=== PATIENT | female | born 1985 | race Caucasian/White ===

== ENCOUNTER 2016-12-12 15:44 | Emergency (ER) | payer OTHER ==
[~2016-12-12] VITALS: Wt 60.7 kg
--- NOTE | 2016-12-12 15:57 | ERD ---
ER Documentation Chief Complaint Date/Time DATE: 12/12/16 TIME: 15:55 Chief Complaint LEFT EAR PAIN, COUGH, THROAT PAIN, FEVER AT HOME HPI 31 y/o female presents to ED for left ear pain. Stated that her temp last night was about 99.4 degrees Fahrenheit and took Tylenol prior to sleeping. Left ear pain was described as achy nonradiating with pain rate of 7/10 last night but 2/ 10 at this time. She also reports nasal congestion with facial pain. She is 5 weeks . Visited her OB last . Denies headache, loss of consciousness, dizziness, blurry vision, changes in vision, photophobia, facial pain, throat pain, difficulty swallowing, neck pain , shoulder pain, chest pain, cough, hemoptysis, abdominal pain, pelvic pain/ cramping back pain/cramping, loss of appetite, nausea, vomiting, hematochezia, diarrhea, constipation, urinary symptoms, vaginal discharge, vaginal bleeding, bladder and bowel incontinences, extremity weakness, extremity tenderness, numbness or tingling sensation, difficulty walking, recent travel, recent exposure to illness, recent antibiotic use in the last 3 months, fever, chills. Allergy: NKA PMH: Denies. Family medical history: Denies. A1 LMP: 10/08/2017 Medications: vitamins. Surgery: Denies. 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 Denies smoking, use of alcohol, use of illegal drugs. ROS All systems reviewed and are negative except as per history of present illness. Medications Home Meds Active Scripts Amoxicillin/Potassium Clav (Amox-Clav 875-125 mg Tablet) 875-125 mg Tab, 1 TAB PO BID for 7 Days, #14 TAB Prov:RICHANAND WADSWORTH F 12/12/16 Acetaminophen* (Tylophen*) 500 Mg Capsule, 1 CAP PO Q6H Y for PAIN AND OR ELEVATED TEMP, #20 CAP Prov:RICHERMELINDAANAND F 12/12/16 Physical Exam Vitals Vital Signs Date Time Temp Pulse Resp B/P Pulse Ox O2 Delivery O2 Flow Rate FiO2 12/12/16 15:47 97.9 77 18 114/62 98 Physical Exam CONSTITUTIONAL: Well-appearing; well-nourished; in no apparent distress.~ HEAD: Normocephalic; atraumatic.~ No visible or palpable masses. EYES: Conjunctiva clear, sclera non-icteric, EOM intact. PERRL Ears: Right ear: Hearing intact. EACs clear, TMs non-bulging, non-inflamed, translucent & mobile, ossicles normal appearance, No obstructions, no erythema, no discharges Left ear: Hearing intact. EACs clear, TMs bulging, inflamed, translucent & mobile. No signs of effusion. No obstructions, no erythema, no discharges Nose: No obstructions. No polyps. No external lesions. Mucosa inflamed. No external lesions, septum and turbinates normal. No rhinorrhea. No discharges. Frontal sinus is tender to palpation. Maxillary sinus is tenderness to palpation. MOUTH: Moist mucous membranes, no lesion, no obstructions, no vesicles, no thrush TEETH: No obvious carries or periodontal diseases. No gingival inflammation, lesions, bleeding, discharge. Throat: Uvula in midline. Right tonsil is +2 with no erythema, no exudate. Left tonsil is +2 with no erythema, no exudate. Tolerating secretions well. Good gag reflex. Neck: Supple, without lesions, bruits, or adenopathy. No mass. Thyroid non- enlarged and non-tender to palpation. CHEST: Symmetrical chest. Respirations even and not labored. No retractions noted. CARDIOVASCULAR: Normal S1, S2. RRR. No murmurs, gallops. RESPIRATORY: Normal chest excursion with respiration; breath sounds clear and equal bilaterally; no wheezes, rhonchi, or rales. Breathing even and unlabored. Speaking in clear, full, and complete sentences w/ ease. ABDOMEN: Normal bowel sounds normal. Soft, round, non-distended, non-guarding, no tenderness, no rebound, no organomegaly, no masses, no pulsating abdominal mass. No hernia. No peritoneal signs. : NO CVA Tenderness. BACK: Symmetrical shoulder. Spine is midline without deformity, tenderness. No evidence of trauma or deformity. PELVIS: Stable pelvis. No evidence of trauma or deformity.~ MUSCULOSKELETAL: Normal gait and station. No misalignment, asymmetry, crepitation, defects, tenderness, masses, effusions, decreased range of motion, instability, atrophy or abnormal strength or tone in the head, neck, spine, ribs , pelvis or extremities. No calf tenderness. NEUROVASCULAR: Distal pulses are present. Pedal pulse are present, equal, and normal. Cap refills are < 2 seconds. NEUROLOGIC: Alert and oriented x4. Speaks full and clear sentences. Cranial Nerves II-XII normal. Sensation to pain, touch, and proprioception normal. Grossly unremarkable. No neurologic deficits. Romberg test is negative. PSYCHOLOGICAL: The patients mood and manner are appropriate. No hallucinations , delusions. Not SI. Not HI. Has the capacity to decide for himself/herself. SKIN: Normal for age and ethnicity; warm; dry; good turgor; no apparent lesions or exudates. No rashes, hives, discoloration. Intact. Procedures/MDM Examination. Disease process, medical treatment was explained to the patient and family member. They verbalized understanding and agreed with the diagnostic tests, medical treatment, and follow-up care. Consultation: None. Differential diagnosis: Otitis media versus otitis externa versus upper respiratory infection versus sinusitis. Medical decision makin31 y/o female presents to ED for left ear pain. Stated that her temp last night was about 99.4 degrees Fahrenheit and took Tylenol prior to sleeping. Left ear pain was described as achy nonradiating with pain rate of 7/10 last night but 2/10 at this time. She also reports nasal congestion with facial pain. She is 5 weeks . Visited her OB last . Patient's complaint, patient's history, my physical findings are consistent with my final diagnosis of acute otitis media left ear, acute clinical sinusitis. Medications prescribed are the following: Augmentin. Tylenol. Patient and family member are made aware of the side effects and adverse reactions of the medications prescribed. Instructed on when to seek emergent and medical attention in case allergic/anaphylactic reactions or severe side effects and or adverse reactions to medications. Patient and family member verbalized understanding. Patient instructed Instructed to follow-up with his PCP in 24-48 hours. Follow-up with OB in the next 24-48 hours. Patient stated that she already has an appointment to see her OB this week. Instructed to Call 911 for chest pain, shortness of breath. Advised to come back here in ED as soon as possible for severity of symptoms which includes but not limited to: any new symptoms; shortness of breath/difficulty of breathing; cardiovascular changes; severe gastrointestinal symptoms; signs and symptoms of bleeding and or infection; signs of compartment syndrome/neurovascular changes; neurological changes/deficits. Patient and family member verbalized understanding. Upon discharge, patient is alert and oriented x 4, speaks full and clear sentences, denies pain, has no neurological deficits, has no neurovascular deficits, difficulty of breathing. Breathing even and unlabored. Lung sounds are clear to auscultation. Not in distress. Appears comfortable. Ambulatory with steady gait. Appears satisfied with care provided here in ED. Departure Diagnosis: Primary Impression: Left ear pain Additional Impression: Acute sinusitis Sinusitis location: maxillary Recurrence: not specified as recurrent Qualified Code: J01.00 - Acute maxillary sinusitis, recurrence not specified Condition: Good Additional Instructions: Follow-up with PCP in the next 24-48 hours. Follow-up with OB in the next 24- 48 hours. ANAND WILLAMS Dec 12, 2016 15:57 Condition: Good ANADN WILLAMS Dec 12, 2016 15:57
[2016-12-12] MEDS ORDERED: ACET500C5 PO (15:59)
[2016-12-12] MEDS ORDERED: AMOX1TAB10 PO (15:59)
== END 2016-12-12 16:00 | disposition home or self-care (01) ==
LOC: E/R 15:44
DX: O99.89 Other specified diseases and conditions complicating pregnancy, childbirth and the puerperium (principal); H92.02 Otalgia, left ear; J01.00 Acute maxillary sinusitis, unspecified; O99.511 Diseases of the respiratory system complicating pregnancy, first trimester; Z3A.01 Less than 8 weeks gestation of pregnancy
CPT/HCPCS: 99283